=== PATIENT | female | born 1950 ===

== ENCOUNTER 2017-01-03 10:08 | Emergency (ER) | payer OTHER ==
[2017-01-03 10:48] VITALS: BP 157/89
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
[2017-01-03] MEDS ORDERED: Midazolam 1 MG/ML 2 ML SDV IVPUSH ONE (11:14)
[2017-01-03] MEDS ORDERED: Gadobenate Dimeglumine 529 MG/ML 20 ML SDV IVPUSH ONE ×2 (11:44→12:16)
[2017-01-03] MEDS ORDERED: Sodium Chloride 0.9% 10 ML Syringe FLUSH SCH (11:45)
[2017-01-03] MEDS ORDERED: Sodium Chloride 0.9% 10 ML Syringe FLUSH PRN (12:16)
--- NOTE | 2017-01-04 11:43 | MR ---
MRI brain with orbits (with and without contrast) Technique: T1 sagittal; T2, T2 FLAIR, T1 and diffusion axial; T1 FLAIR coronal; T2 fat-suppressed axial and coronal images through the orbits were obtained. T1 fat-suppressed axial and coronal images through the orbits were obtained which were repeated after gadolinium administration. Post-gadolinium T1 axial images and T1 FLAIR coronal images were obtained through the brain. Comparison: No previous intracranial imaging. Findings: Ventricles along with basal cisterns and sulci over the convexities are within normal limits for the patient's age. Normal signal void is seen within the major cerebral arteries within the skull base. Minimal area of increased signal is seen within the right periventricular white matter. No other abnormal signal is seen within the brain parenchyma. No midline shift or mass effect is seen. No acute diffusion abnormalities are seen. Right and left globes are symmetric in size. Extraocular muscles and optic nerves are also symmetric in size. No abnormal enhancement seen of the extraocular muscles or of the optic nerves. No mass effect is seen upon the optic chiasm. No abnormal enhancement seen within the brain parenchyma. Impression: 1. Small area of increased signal within the right periventricular white matter which is felt to be incidental. 2. Other portions of the MRI study of the brain and orbits appear unremarkable Diagnostic code #2 I agree with preliminary report issued by [facility] ([facility] report finalized on 01/03/17, 2:31 PM Central Time)
--- NOTE | 2017-01-05 10:40 | MR ---
MRI brain with orbits (with and without contrast) Technique: T1 sagittal; T2, T2 FLAIR, T1 and diffusion axial; T1 FLAIR coronal; T2 fat-suppressed axial and coronal images through the orbits were obtained. T1 fat-suppressed axial and coronal images through the orbits were obtained which were repeated after gadolinium administration. Post-gadolinium T1 axial images and T1 FLAIR coronal images were obtained through the brain. Comparison: No previous intracranial imaging. Findings: Ventricles along with basal cisterns and sulci over the convexities are within normal limits for the patient's age. Normal signal void is seen within the major cerebral arteries within the skull base. Minimal area of increased signal is seen within the right periventricular white matter. No other abnormal signal is seen within the brain parenchyma. No midline shift or mass effect is seen. No acute diffusion abnormalities are seen. Right and left globes are symmetric in size. Extraocular muscles and optic nerves are also symmetric in size. No abnormal enhancement seen of the extraocular muscles or of the optic nerves. No mass effect is seen upon the optic chiasm. No abnormal enhancement seen within the brain parenchyma. Impression: 1. Small area of increased signal within the right periventricular white matter which is felt to be incidental. 2. Other portions of the MRI study of the brain and orbits appear unremarkable Diagnostic code #2 I agree with preliminary report issued by [facility] ([facility] report finalized on , 2:31 PM Central Time) STEVEN
== END 2017-01-03 13:50 | disposition home or self-care (01) ==
LOC: JD.ED 10:08
DX: R40.4 Transient alteration of awareness (principal); H53.2 Diplopia; I10 Essential (primary) hypertension; E03.9 Hypothyroidism, unspecified; F17.210 Nicotine dependence, cigarettes, uncomplicated; Z79.82 Long term (current) use of aspirin; Z79.899 Other long term (current) drug therapy; Z88.8 Allergy status to other drugs, medicaments and biological substances
CPT/HCPCS: 36415; 70543; 70553; 84484; 93005; 96374; 99285; A9577; J2250; J7050

== ENCOUNTER 2021-05-05 13:45 | Emergency (ER) | payer MEDICARE, OTHER ==
[2021-05-05] MEDS ORDERED: Sodium Chloride 0.9% 10 ML Syringe FLUSH PRN (14:05)
[2021-05-05 15:08] LABS: CORONAVIRUS COVID-19 NAA NEGATIVE (NEGATIVE)
[2021-05-05] MEDS ORDERED: Sodium Chloride 0.9% 1,000 ML IV STA (15:32)
[2021-05-05] MEDS ORDERED: Ondansetron 4 MG/2 ML SDV IVPUSH ONE (15:35)
[2021-05-05] MEDS: Potassium Chloride 10 MEQ in Premix Bag 1 BAG IV SCH ×2 (15:50→17:07)
[2021-05-05] MEDS ORDERED: Potassium Chloride 20 MEQ Tab.ER PO ONE (16:10)
[2021-05-05] MEDS ORDERED: Sodium Chloride 0.9% with KCl 1,000 ML IV SCH (16:15)
[2021-05-05] MEDS ORDERED: LORazepam 2 MG/ML SDV IVPUSH ONE (16:27)
[2021-05-05 17:14] VITALS: BP 99/43; PULSE 107
== END 2021-05-05 17:09 ==
LOC: JD.ED 13:45
DX: N17.9 Acute kidney failure, unspecified (principal); R79.89 Other specified abnormal findings of blood chemistry; R11.2 Nausea with vomiting, unspecified; R19.7 Diarrhea, unspecified; E78.00 Pure hypercholesterolemia, unspecified; I10 Essential (primary) hypertension; E03.9 Hypothyroidism, unspecified; F17.210 Nicotine dependence, cigarettes, uncomplicated; R94.31 Abnormal electrocardiogram [ECG] [EKG]; R00.0 Tachycardia, unspecified; Z88.8 Allergy status to other drugs, medicaments and biological substances; Z79.899 Other long term (current) drug therapy; Z79.82 Long term (current) use of aspirin; Z20.822 Contact with and (suspected) exposure to COVID-19
CPT/HCPCS: 0240U; 36415; 71045; 71045-26; 80053; 83880; 84484; 85025; 85379; 86140; 93005; 93010; 96365; 96366; 96375; 99285; 99285-25; A9270-GY; J2060; J2405; J3480; J7030

== ENCOUNTER 2021-05-11 16:03 | Inpatient (IN) | payer MEDICARE, OTHER ==
[2021-05-11] MEDS ORDERED: Sodium Chloride 0.9% 1,000 ML IV STA (16:28)
[2021-05-11] MEDS ORDERED: Ondansetron 4 MG/2 ML SDV IVPUSH ONE (16:28)
[2021-05-11] MEDS ORDERED: Sodium Chloride 0.9% 10 ML Syringe FLUSH PRN (16:28)
[2021-05-11] MEDS ORDERED: Zolpidem 5 MG Tab PO PRN (20:05)
[2021-05-11] MEDS ORDERED: Albuterol 0.083% 2.5 MG/3 ML Neb Soln NEB PRN (20:05)
[2021-05-11 20:46] LABS: CORONAVIRUS COVID-19 NAA NEGATIVE (NEGATIVE)
[2021-05-11] MEDS: Acetaminophen 325 MG Tab PO PRN (21:54)
[2021-05-12] MEDS ORDERED: Sodium Chloride 0.9% 1,000 ML IV SCH (09:30)
[2021-05-12] MEDS: Potassium Chloride 10 MEQ in Premix Bag 1 BAG IV SCH ×4 (09:38→13:22)
[2021-05-12] MEDS: Potassium Chloride 20 MEQ Tab.ER PO SCH ×2 (09:51→21:17)
[2021-05-12] MEDS: Enoxaparin 30 MG/0.3 ML Syringe SUBCUT SCH (09:52)
[2021-05-12] MEDS: Ondansetron 4 MG/2 ML SDV IV PRN (14:43)
[2021-05-12] MEDS ORDERED: methylPREDNISolone Sodium Succinate 125 MG/2 ML SDV IVPUSH ONE (16:15)
[2021-05-12] MEDS ORDERED: Lactated Ringers 1,000 ML IV ONE ×2 (17:15→17:38)
[2021-05-12] MEDS ORDERED: Loperamide 2 MG Cap PO ONE (17:30)
[2021-05-12] MEDS: Lactated Ringers 1,000 ML IV SCH (18:51)
[2021-05-12] MEDS: Cholestyramine/Sucrose Powder 4 GM Packet PO SCH (21:16)
[2021-05-12] MEDS: Zolpidem 10 MG Tab PO PRN (21:28)
[2021-05-12] MEDS ORDERED: Loperamide 2 MG Cap PO PRN (23:00)
[2021-05-13] MEDS: Pantoprazole 40 MG Tab.CR PO SCH ×2 (05:45→07:01)
[2021-05-13] MEDS: Levothyroxine 88 MCG Tab PO SCH (05:45)
[2021-05-13] MEDS ORDERED: VENLAFAXINE 25 MG PO SCH (09:00)
[2021-05-13] MEDS ORDERED: Magnesium Sulfate/Water 2 GM in Premix Bag 1 BAG IV ONE (09:00)
[2021-05-13] MEDS: Potassium Chloride 20 MEQ Tab.ER PO SCH (09:55)
[2021-05-13] MEDS: Venlafaxine 75 MG Cap.ER PO SCH (09:55)
[2021-05-13] MEDS: Enoxaparin 30 MG/0.3 ML Syringe SUBCUT SCH (09:56)
[2021-05-13] MEDS ORDERED: Lactated Ringers 500 ML IV ONE (10:23)
[2021-05-13] MEDS: Cholestyramine/Sucrose Powder 4 GM Packet PO SCH ×2 (10:30→20:06)
[2021-05-13] MEDS: methylPREDNISolone Sodium Succinate 40 MG/1 ML SDV IVPUSH SCH ×2 (10:36→20:06)
[2021-05-13] MEDS: Lactated Ringers 1,000 ML IV SCH ×2 (15:56→17:22)
[2021-05-13] MEDS: Ondansetron 4 MG/2 ML SDV IV PRN (17:13)
[2021-05-13] MEDS: Zolpidem 10 MG Tab PO PRN (20:45)
[2021-05-14] MEDS: Levothyroxine 88 MCG Tab PO SCH (05:40)
[2021-05-14] MEDS: Pantoprazole 40 MG Tab.CR PO SCH ×2 (05:40→08:20)
[2021-05-14] MEDS: Lactated Ringers 1,000 ML IV SCH (05:40)
[2021-05-14] MEDS: Venlafaxine 75 MG Cap.ER PO SCH (08:20)
[2021-05-14] MEDS: Enoxaparin 30 MG/0.3 ML Syringe SUBCUT SCH (08:20)
[2021-05-14] MEDS: methylPREDNISolone Sodium Succinate 40 MG/1 ML SDV IVPUSH SCH ×2 (08:21→20:00)
[2021-05-14] MEDS: Cholestyramine/Sucrose Powder 4 GM Packet PO SCH ×2 (08:21→20:00)
[2021-05-14] MEDS ORDERED: Dextrose 5%-0.45% NaCl 1,000 ML IV SCH (08:45)
[2021-05-14] MEDS: Zolpidem 10 MG Tab PO PRN (20:00)
[2021-05-15] MEDS: Pantoprazole 40 MG Tab.CR PO SCH ×3 (06:30→07:03)
[2021-05-15] MEDS: Acetaminophen 325 MG Tab PO PRN (06:31)
[2021-05-15] MEDS: Levothyroxine 88 MCG Tab PO SCH (07:01)
[2021-05-15] MEDS: Cholestyramine/Sucrose Powder 4 GM Packet PO SCH (09:32)
[2021-05-15] MEDS: Venlafaxine 75 MG Cap.ER PO SCH (09:33)
[2021-05-15] MEDS: Enoxaparin 30 MG/0.3 ML Syringe SUBCUT SCH (09:33)
[2021-05-15] MEDS: methylPREDNISolone Sodium Succinate 40 MG/1 ML SDV IVPUSH SCH (09:33)
[2021-05-15 09:52] VITALS: BP 140/72; PULSE 86
== END 2021-05-15 12:04 | disposition home or self-care (01) | DRG 683 ==
LOC: JD.ED 16:03 → JD.MS 18:36
PROVIDERS: ADMIT Emergency Medicine; ATTEND Family Medicine
DX: R19.7 Diarrhea, unspecified (principal); N28.9 Disorder of kidney and ureter, unspecified; H54.7 Unspecified visual loss; N17.9 Acute kidney failure, unspecified; E87.2 Acidosis; R74.01 Elevation of levels of liver transaminase levels; K52.9 Noninfective gastroenteritis and colitis, unspecified; F17.210 Nicotine dependence, cigarettes, uncomplicated; K59.09 Other constipation; K57.90 Diverticulosis of intestine, part unspecified, without perforation or abscess without bleeding; E03.9 Hypothyroidism, unspecified; E78.00 Pure hypercholesterolemia, unspecified; I10 Essential (primary) hypertension; Z20.822 Contact with and (suspected) exposure to COVID-19; F17.200 Nicotine dependence, unspecified, uncomplicated; E78.5 Hyperlipidemia, unspecified; F41.9 Anxiety disorder, unspecified; F32.A Depression, unspecified; G47.00 Insomnia, unspecified; K21.9 Gastro-esophageal reflux disease without esophagitis; R11.14 Bilious vomiting; E87.6 Hypokalemia; Z88.8 Allergy status to other drugs, medicaments and biological substances; Z87.440 Personal history of urinary (tract) infections; Z79.82 Long term (current) use of aspirin; Z79.890 Hormone replacement therapy; Z79.899 Other long term (current) drug therapy
CPT/HCPCS: 0240U; 36415; 74019; 74176; 76705; 80048; 80053; 83630; 83690; 83735; 85025; 86140; 87045; 87046; 87328; 87329; 87493; 87899; 96374; 99285; 36410; 76937; A9270-GY; J1650; J2405; J2920; J2930; J3475; J3480; J7030; J7042; J7120

== ENCOUNTER 2021-08-02 17:57 | Observation (INO) | payer MEDICARE, OTHER ==
[2021-08-02] MEDS ORDERED: Magnesium Sulfate/Water 2 GM in Premix Bag 1 BAG IV ONE (19:19)
[2021-08-02] MEDS ORDERED: Potassium Chloride 20 MEQ Tab.ER PO ONE (19:19)
[2021-08-02] MEDS ORDERED: Sodium Chloride 0.9% 1,000 ML IV SCH (19:30)
[2021-08-02] MEDS: Potassium Chloride 10 MEQ in Premix Bag 1 BAG IV SCH ×3 (19:56→22:52)
[2021-08-02] MEDS ORDERED: Hydrocortisone Sodium Succinate 100 MG/2 ML SDV IVPUSH ONE (21:14)
[2021-08-02] MEDS ORDERED: Zolpidem 10 MG Tab PO ONE (23:30)
[2021-08-03] MEDS: Sodium Chloride 0.9% 1,000 ML IV SCH ×3 (01:05→19:29)
[2021-08-03] MEDS ORDERED: Hydrocortisone Sodium Succinate 100 MG/2 ML SDV IVPUSH ONE (03:00)
[2021-08-03] MEDS ORDERED: Loperamide 2 MG Cap PO PRN (06:37)
[2021-08-03] MEDS ORDERED: Zolpidem 10 MG Tab PO PRN (06:37)
[2021-08-03] MEDS ORDERED: oxyCODONE 5 MG Tab PO PRN (07:22)
[2021-08-03] MEDS ORDERED: Ondansetron 4 MG/2 ML SDV IV PRN (07:22)
[2021-08-03] MEDS: Losartan 100 MG Tab PO SCH (09:58)
[2021-08-03] MEDS: Heparin Sodium 5,000 Units/ML Vial SUBCUT SCH ×2 (09:58→17:12)
[2021-08-03] MEDS: Cholestyramine/Sucrose Powder 4 GM Packet PO SCH ×2 (09:58→19:50)
[2021-08-03] MEDS: Pantoprazole 40 MG Tab.CR PO SCH (10:00)
[2021-08-03] MEDS: Levothyroxine 88 MCG Tab PO SCH (10:00)
[2021-08-03] MEDS: Venlafaxine 75 MG Cap.ER PO SCH (10:00)
[2021-08-03] MEDS ORDERED: predniSONE 10 MG Tab PO SCH (10:00)
[2021-08-03] MEDS ORDERED: predniSONE 20 MG Tab PO ONE (11:00)
[2021-08-03] MEDS: Potassium Chloride 10 MEQ in Premix Bag 1 BAG IV SCH ×5 (11:20→22:57)
[2021-08-03] MEDS: Acetaminophen 325 MG Tab PO PRN (11:26)
[2021-08-03] MEDS: Gabapentin 300 MG Cap PO SCH (19:50)
[2021-08-03] MEDS: atorvaSTATin 20 MG Tab PO SCH (19:51)
[2021-08-04] MEDS: Cholestyramine/Sucrose Powder 4 GM Packet PO SCH ×2 (03:58→09:03)
[2021-08-04] MEDS: atorvaSTATin 20 MG Tab PO SCH (03:58)
[2021-08-04] MEDS: Gabapentin 300 MG Cap PO SCH ×2 (03:59→07:59)
[2021-08-04] MEDS: Potassium Chloride 10 MEQ in Premix Bag 1 BAG IV SCH ×5 (04:07→15:13)
[2021-08-04] MEDS: Heparin Sodium 5,000 Units/ML Vial SUBCUT SCH (04:09)
[2021-08-04] MEDS: Levothyroxine 88 MCG Tab PO SCH ×2 (04:10→05:56)
[2021-08-04] MEDS: Pantoprazole 40 MG Tab.CR PO SCH (07:59)
[2021-08-04] MEDS: Venlafaxine 75 MG Cap.ER PO SCH (07:59)
[2021-08-04] MEDS ORDERED: Potassium Bicarbonate/Cit Ac 20 MEQ Effervescent Tab PO ONE (08:00)
[2021-08-04] MEDS: Losartan 100 MG Tab PO SCH (08:00)
[2021-08-04] MEDS: Acetaminophen 325 MG Tab PO PRN (08:23)
[2021-08-04] MEDS ORDERED: predniSONE 10 MG Tab PO SCH (09:00)
[2021-08-04] MEDS: Sodium Chloride 0.9% 1,000 ML IV SCH (09:45)
[2021-08-04] MEDS ORDERED: Heparin Sodium 5,000 Units/ML Vial SUBCUT SCH (12:00)
[2021-08-04 15:42] VITALS: BP 128/63; PULSE 87
== END 2021-08-04 18:38 | disposition home or self-care (01) ==
LOC: JD.ED 17:57 → JD.MS 21:42
PROVIDERS: ADMIT Internal Medicine; ATTEND Internal Medicine
DX: R53.1 Weakness (principal); R53.83 Other fatigue; E86.0 Dehydration; N17.9 Acute kidney failure, unspecified; E87.6 Hypokalemia; E27.3 Drug-induced adrenocortical insufficiency; T38.0X5A Adverse effect of glucocorticoids and synthetic analogues, initial encounter; K52.832 Lymphocytic colitis; F41.9 Anxiety disorder, unspecified; F32.89 Other specified depressive episodes; G47.00 Insomnia, unspecified; H54.7 Unspecified visual loss; K21.9 Gastro-esophageal reflux disease without esophagitis; E03.9 Hypothyroidism, unspecified; E55.9 Vitamin D deficiency, unspecified; I10 Essential (primary) hypertension; E78.00 Pure hypercholesterolemia, unspecified; F17.210 Nicotine dependence, cigarettes, uncomplicated; E66.9 Obesity, unspecified; Z68.35 Body mass index [BMI] 35.0-35.9, adult; Z88.8 Allergy status to other drugs, medicaments and biological substances; Z98.890 Other specified postprocedural states; Z79.890 Hormone replacement therapy; Z79.899 Other long term (current) drug therapy
CPT/HCPCS: 36415; 71045; 80053; 82009; 83735; 83880; 84132; 84484; 85025; 85610; 93005; 96365; 96366; 96368; 96372; 96375; 96376; 99285; A9270; G0378; J1644; J1720; J3475; J3480; J7030; J7512

== ENCOUNTER 2023-09-20 14:42 | Emergency (ER) | payer MEDICARE, OTHER ==
[2023-09-20 15:04] VITALS: BP 141/81; PULSE 98
== END 2023-09-20 19:00 ==
LOC: JD.ED 14:42
DX: I21.4 Non-ST elevation (NSTEMI) myocardial infarction (principal); I10 Essential (primary) hypertension; K21.9 Gastro-esophageal reflux disease without esophagitis; E03.9 Hypothyroidism, unspecified; F17.210 Nicotine dependence, cigarettes, uncomplicated; Z79.899 Other long term (current) drug therapy; Z88.8 Allergy status to other drugs, medicaments and biological substances
CPT/HCPCS: 36415; 84484; 93005; 93010; 99285